=== PATIENT | female | born 1950 | race Hispanic/Latino ===

== ENCOUNTER 2018-05-10 16:32 | Emergency (ER) | payer MEDICARE, MEDICAID ==
[2018-05-10 16:33] VITALS: BMI 24.6
[2018-05-10 16:42] VITALS: TEMP 98.5
--- NOTE | 2018-05-10 17:54 | C.PDOC ---
History Of Present Illness 68 y/o female with a PMHx of scoliosis, presents to the ED with left thoracic pain for 4 days. Patient states she fell asleep in a recliner and when she awoke, was laying on her left side. When trying to straighten out she felt a sharp pain in the left thorax. She now reports pain worsens with any sort of movement, palpation, or deep breath. Denies any SOB, fever, cough, congestion, or other associated symptoms. Time Seen by Provider: 05/10/18 17:25 Chief Complaint (Nursing): Rib Injury History Per: Patient History/Exam Limitations: no limitations Onset/Duration Of Symptoms: Days Current Symptoms Are (Timing): Still Present Past Medical History Reviewed: Historical Data, Nursing Documentation, Vital Signs Vital Signs: Last Vital Signs Temp 98.5 F 05/10/18 16:38 Pulse 103 H 05/10/18 16:38 Resp 19 05/10/18 16:38 BP 120/78 05/10/18 16:38 Pulse Ox 98 05/10/18 16:38 - Medical History PMH: Arthritis, CAD, Diabetes, GERD, HTN, Hypercholesterolemia Denies: Chronic Kidney Disease Surgical History: Appendectomy, Cholecystectomy - [facility] Procedures CONTRAST ARTERIOGRAM-LEG (10/09/14) DEBRIDEMENT OF NAIL, NAIL BED OR NAIL FOLD (08/13/13) INJECT/INFUSE NEC (11/29/12) NONEXCIS DEBRID OF WOUND, INFECT, OR BURN (07/19/13) OTHER LOCAL DESTRUC SKIN (03/05/13) Family History: States: Unknown Family Hx - Social History Hx Alcohol Use: No Hx Substance Use: No - Immunization History Hx Tetanus Toxoid Vaccination: No Hx Influenza Vaccination: No Hx Pneumococcal Vaccination: No Review Of Systems Except As Marked, All Systems Reviewed And Found Negative. Constitutional: Negative for: Fever, Chills Eyes: Negative for: Vision Change ENT: Negative for: Nose Congestion Cardiovascular: Positive for: Other (Left rib pain) Respiratory: Negative for: Cough, Shortness of Breath Gastrointestinal: Negative for: Nausea, Vomiting Neurological: Negative for: Headache, Dizziness Physical Exam - Physical Exam Additional Physical Exam Comments: Constitutional: No acute distress. Head: Normocephalic. Atraumatic. Eyes: PERRL. ENT: Moist mucous membranes. Neck: Supple. Cardiovascular: Regular rate. Radial pulse 2+ bilaterally. Chest: Reproducible tenderness over the left lateral rib cage. No crepitus, ecchymosis, or deformity. Respiratory: Clear to auscultation bilaterally. GI: Soft. Nontender. Nondistended. Back: No CVA tenderness. Musculoskeletal: No tenderness or swelling of extremities. Skin: No rash. Neurologic: Alert, no focal deficit. ED Course And Treatment O2 Sat by Pulse Oximetry: 98 (RA) Pulse Ox Interpretation: Normal Medical Decision Making Medical Decision Making: CT Chest ordered. CT resulted: Findings: Visualized portions of the inferior thyroid gland appear unremarkable. The noncontrast mediastinal and hilar vascular structures appear grossly unremarkable except for atherosclerotic calcifications. Cardiomegaly. Valvular and coronary artery calcifications. Dense atherosclerotic calcifications of the aorta. Emphysematous changes. Hyperinflation may be seen in the setting of COPD. No focal consolidation. No pleural effusion. No pneumothorax. Limited visualization of the noncontrast upper abdomen: Heterogeneous hepatic parenchyma. Cholecystectomy. Partially imaged prominent central biliary dilatation. Question presence of hypodense mass at the level of the pancreatic head/maite hepatis; this is markedly limited in evaluation on this noncontrast study. Calcifications bilateral breasts. Scoliosis. Degenerative changes. Osseous demineralization. Impression: Emphysema/COPD. Cardiomegaly. Nonspecific calcifications, bilateral breast soft tissues. Limited visualization of the noncontrast upper abdomen: Heterogeneous hepatic parenchyma. Cholecystectomy. Partially imaged prominent central biliary dilatation. Question presence of hypodense mass at the level of the pancreatic head/maite hepatis; this is markedly limited in evaluation on this noncontrast study. Recommend CT of the abdomen and pelvis with IV contrast for further evaluation, if indicated. CT findings reviewed with patient. [place] [employer] DESK COORDINATOR reviewed, less than 2 RX for narcotics in the last year. 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 Disposition - Disposition Disposition: HOME/ ROUTINE Disposition Time: 19:19 Condition: STABLE Additional Instructions: Findings: Visualized portions of the inferior thyroid gland appear unremarkable. The noncontrast mediastinal and hilar vascular structures appear grossly unremarkable except for atherosclerotic calcifications. Cardiomegaly. Valvular and coronary artery calcifications. Dense atherosclerotic calcifications of the aorta. Emphysematous changes. Hyperinflation may be seen in the setting of COPD. No focal consolidation. No pleural effusion. No pneumothorax. Limited visualization of the noncontrast upper abdomen: Heterogeneous hepatic pa renchyma. Cholecystectomy. Partially imaged prominent central biliary dilatation. Question presence of hypodense mass at the level of the pancreatic head/maite hepatis; this is markedly limited in evaluation on this noncontrast study. Calcifications bilateral breasts. Scoliosis. Degenerative changes. Osseous demineralization. Impression: Emphysema/COPD. Cardiomegaly. Nonspecific calcifications, bilateral breast soft tissues. Limited visualization of the noncontrast upper abdomen: Heterogeneous hepatic parenchyma. Cholecystectomy. Partially imaged prominent central biliary dila tation. Question presence of hypodense mass at the level of the pancreatic head/maite hepatis; this is markedly limited in evaluation on this noncontrast study. Recommend CT of the abdomen and pelvis with IV contrast for further evaluation, if indicated. Prescriptions: traMADol [Ultram] 50 mg PO Q8H PRN #6 tab PRN Reason: Pain, Severe (8-10) Instructions: Bruised Rib (DC) Forms: [facility] (Ukrainian) - Clinical Impression Clinical Impression: Rib contusion - Scribe Statement The provider has reviewed the documentation as recorded by the Rosalva Zendejas Provider Attestation: All medical record entries made by the Rosalva were at my direction and personally dictated by me. I have reviewed the chart and agree that the record accurately reflects my personal performance of the history, physical exam, medical decision making, and the department course for this patient. I have also personally directed, reviewed, and agree with the discharge instructions and disposition.
--- NOTE | 2018-05-10 18:55 | CT ---
Date of service: 05/10/2018 CT chest without IV contrast Indication: L sided thoracic pain Technique: Contiguous axial images were obtained through the chest without intravenous contrast enhancement. Sagittal and coronal reconstructions were generated and reviewed. This CT exam was performed using 1 or more of the following dose reduction techniques: Automated exposure control, adjustment of the MAA and/or kV according to patient size, and/or use of iterative reconstruction technique. Radiation dose (DLP): 334.93 MGy-cm. Comparison: Chest x-ray performed 07/23/15 Findings: Visualized portions of the inferior thyroid gland appear unremarkable. The noncontrast mediastinal and hilar vascular structures appear grossly unremarkable except for atherosclerotic calcifications. Cardiomegaly. Valvular and coronary artery calcifications. Dense atherosclerotic calcifications of the aorta. Emphysematous changes. Hyperinflation may be seen in the setting of COPD. No focal consolidation. No pleural effusion. No pneumothorax. Limited visualization of the noncontrast upper abdomen: Heterogeneous hepatic parenchyma. Cholecystectomy. Partially imaged prominent central biliary dilatation. Question presence of hypodense mass at the level of the pancreatic head/maite hepatis; this is markedly limited in evaluation on this noncontrast study. Calcifications bilateral breasts. Scoliosis. Degenerative changes. Osseous demineralization. Impression: Emphysema/COPD. Cardiomegaly. Nonspecific calcifications, bilateral breast soft tissues. Limited visualization of the noncontrast upper abdomen: Heterogeneous hepatic parenchyma. Cholecystectomy. Partially imaged prominent central biliary dilatation. Question presence of hypodense mass at the level of the pancreatic head/maite hepatis; this is markedly limited in evaluation on this noncontrast study. Recommend CT of the abdomen and pelvis with IV contrast for further evaluation, if indicated.
[2018-05-10 19:48] VITALS: BP 118/68; PULSE 86; RESP 16; O2SAT 95
== END 2018-05-10 19:50 | disposition home or self-care (01) ==
LOC: C.ER 16:32
DX: S20.20XA Contusion of thorax, unspecified, initial encounter (principal); X58.XXXA Exposure to other specified factors, initial encounter

== ENCOUNTER 2018-08-07 11:50 | Outpatient (CLI) | payer MEDICARE, MEDICAID | END 2018-08-07 11:51 | disposition home or self-care (01) | LOC: C.RADIC 11:50 ==